=== PATIENT | female | born 1940 | race Hispanic/Latino ===

== ENCOUNTER 2018-12-14 14:39 | Inpatient (IN) | payer OTHER, MEDICARE ==
[~2018-12-14] VITALS: Ht 157.5 cm; Wt 83.0 kg
[2018-12-14 16:11] LABS: BASOPHILS % (AUTO) 0.6 % (0.0-5.0); EOSINOPHILS % (AUTO) 4.2 % (0.0-8.0); HEMATOCRIT 37.8 % (36-48); LYMPHOCYTES % (AUTO) 24.6 % (21.0-51.0); MEAN CORPUSCULAR HGB CONC 33.3 g/dL (32.0-36.0); MEAN CORPUSCULAR VOLUME 86.9 fL (79-99); MONOCYTES % (AUTO) 10.9 % (3.0-13.0); NEUTROPHILS % (AUTO) 59.7 % (40.0-77.0); PLATELET COUNT (AUTO) 160 K/uL (130-400); RED BLOOD CELL COUNT(AUTO) 4.35 MIL/uL (4.00-5.50); WHITE BLOOD COUNT (AUTO) 7.8 K/uL (4.8-10.8)
[2018-12-14 16:20] LABS: CREATININE 1.1 mg/dL (0.5-1.5)
[2018-12-14 16:23] LABS: INR 1.15 (0.85-1.15); PARTIAL THROMBOPLASTIN TIME 30.1 SEC (26.3-35.5)
[2018-12-14 16:28] LABS: APPEARANCE,URINE Clear (CLEAR); BILIRUBIN,URINE Negative (NEGATIVE); COLOR,URINE Yellow (YELLOW); GLUCOSE, URINE (UA) Negative (NEGATIVE); KETONES,URINE Negative (NEGATIVE); LEUKOCYTE ESTERASE ,URINE Negative (NEGATIVE); NITRATE,URINE Negative (NEGATIVE); OCCULT BLOOD,URINE Small (NEGATIVE); PROTEIN,URINE Negative (NEGATIVE); UROBILINOGEN,URINE 0.2 mg/dL (0.2-1.0)
[2018-12-14 16:32] LABS: ALBUMIN 3.2 g/dL (3.5-5.0); BILIRUBIN,TOTAL 0.3 mg/dL (0.2-1.0); MAGNESIUM 2.4 mg/dL (1.80-2.40); THYROID STIMULATING HORMONE 0.12 uIU/mL (0.36-3.74); TOTAL PROTEIN, SERUM 6.6 g/dL (6.0-8.3)
[2018-12-14 16:37] LABS: B-TYPE NATRIURETIC PEPTIDE 262 pg/mL (0-100)
[2018-12-14 16:42] LABS: BACTERIA,URINE Rare /HPF (None Seen); MUCUS,URINE None Seen LPF (None Seen); SQUAMOUS EPITHELIAL CELL,UR 0-2 /HPF (0-2)
[2018-12-14] MEDS ORDERED: ACETAMINOPHEN 325 MG TAB PO PRN (17:45)
[2018-12-14] MEDS ORDERED: ONDANSETRON HCL 4 MG/2 ML VIAL IV PRN (17:45)
[2018-12-14] MEDS ORDERED: HYDRALAZINE HCL 20 MG/ML VIAL IV PRN (17:45)
[2018-12-14] MEDS ORDERED: ASPIRIN 81 MG EC TAB PO SCH (18:00)
[2018-12-14] MEDS ORDERED: FUROSEMIDE 10 MG/ML 2ML VIAL ONE (18:41)
[2018-12-14] MEDS ORDERED: ASPIRIN 81MG TAB.CHEW ONE (18:41)
[2018-12-14] MEDS ORDERED: ACETAMINOPHEN 325 MG TAB ONE (22:19)
[2018-12-14] MEDS ORDERED: FAMOTIDINE/PF 20 MG/2 ML VIAL IV ONE (22:35)
[2018-12-15] MEDS: FUROSEMIDE 10 MG/ML 2ML VIAL IV SCH ×2 (06:00→17:56)
[2018-12-15] MEDS ORDERED: FUROSEMIDE 10 MG/ML 2ML VIAL ONE (06:13)
[2018-12-15 06:52] LABS: BASOPHILS % (AUTO) 1.7 % (0.0-5.0); EOSINOPHILS % (AUTO) 4.1 % (0.0-8.0); HEMATOCRIT 39.8 % (36-48); LYMPHOCYTES % (AUTO) 23.9 % (21.0-51.0); MEAN CORPUSCULAR HEMOGLOBIN 28.9 pg (27.0-33.0); MEAN CORPUSCULAR HGB CONC 33.2 g/dL (32.0-36.0); MONOCYTES % (AUTO) 9.4 % (3.0-13.0); NEUTROPHILS % (AUTO) 60.9 % (40.0-77.0); NUCLEATED RED BLOOD CELLS 0.1 % (0.0-0.19); PLATELET COUNT (AUTO) 113 K/uL (130-400); RED BLOOD CELL COUNT(AUTO) 4.58 MIL/uL (4.00-5.50); WHITE BLOOD COUNT (AUTO) 8.5 K/uL (4.8-10.8)
[2018-12-15 06:59] LABS: CREATININE 0.8 mg/dL (0.5-1.5)
[2018-12-15] MEDS ORDERED: LORA-192 PO ×2 (07:59→12:21)
[2018-12-15] MEDS ORDERED: LEVE-43 PO (07:59)
[2018-12-15] MEDS ORDERED: RIVA20TA PO (07:59)
[2018-12-15] MEDS ORDERED: OLOP2.5D5 OU (07:59)
[2018-12-15] MEDS ORDERED: MONT10TA21 PO (07:59)
[2018-12-15] MEDS ORDERED: CETI10TA57 PO (07:59)
[2018-12-15] MEDS ORDERED: FURO40TA5 PO (07:59)
[2018-12-15] MEDS ORDERED: LEVO100T4 PO (07:59)
[2018-12-15] MEDS ORDERED: ISOS20TA7 PO (07:59)
[2018-12-15] MEDS ORDERED: SERT100T PO (07:59)
[2018-12-15] MEDS ORDERED: POTA20PA32 PO (07:59)
[2018-12-15] MEDS ORDERED: GABA-533 PO (07:59)
[2018-12-15] MEDS ORDERED: SULF500T8 PO (07:59)
[2018-12-15] MEDS ORDERED: METH10TA2 PO (07:59)
[2018-12-15] MEDS ORDERED: METO25TA6 PO ×2 (07:59→18:12)
[2018-12-15] MEDS ORDERED: ESOM40CA PO (07:59)
[2018-12-15] MEDS ORDERED: SPIR25TA6 PO (07:59)
[2018-12-15] MEDS ORDERED: ROSU10TA22 PO (07:59)
[2018-12-15] MEDS ORDERED: ASPIRIN 81MG TAB.CHEW ONE (08:02)
[2018-12-15] MEDS ORDERED: ENOXAPARIN SODIUM 40 MG/0.4 ML SYRINGE SQ ONE (08:04)
[2018-12-15] MEDS ORDERED: FAMOTIDINE/PF 20 MG/2 ML VIAL IV ONE (08:05)
[2018-12-15] MEDS ORDERED: FAMOTIDINE/PF 20 MG/2 ML VIAL IV SCH (09:00)
[2018-12-15] MEDS ORDERED: ENOXAPARIN SODIUM 40 MG/0.4 ML SYRINGE SQ SCH (09:00)
[2018-12-15 10:13] VITALS: BP 126/53
[2018-12-15 12:04] VITALS: BP 157/68
[2018-12-15] MEDS ORDERED: LORAZEPAM 1 MG TABLET PO PRN (12:30)
[2018-12-15 16:01] VITALS: BP 129/47
--- NOTE | 2018-12-15 18:36 | NUR ---
Patient already received Flu Vaccine this season and therefore is not eligible to get vaccine in hospital.
[2018-12-15] MEDS ORDERED: RIVAROXABAN 20 MG TABLET PO SCH (21:00)
[2018-12-15] MEDS ORDERED: METHADONE HCL 10 MG TABLET PO SCH (21:00)
[2018-12-15] MEDS ORDERED: LEVETIRACETAM 500 MG TABLET PO SCH (21:00)
[2018-12-15] MEDS ORDERED: GABAPENTIN 100 MG CAPSULE PO SCH (21:00)
[2018-12-15] MEDS ORDERED: METOPROLOL TARTRATE 25 MG TAB PO SCH (21:00)
[2018-12-16] MEDS ORDERED: LEVOTHYROXINE 100 MCG TABLET PO SCH (06:30)
[2018-12-16] MEDS ORDERED: SULFASALAZINE 500 MG TAB.DR PO SCH (08:00)
[2018-12-16] MEDS ORDERED: SERTRALINE HCL 50 MG TABLET PO SCH (09:00)
[2018-12-16] MEDS ORDERED: MONTELUKAST SODIUM 10 MG TAB PO SCH (09:00)
[2018-12-16] MEDS ORDERED: SPIRONOLACTONE 25 MG TAB PO SCH (09:00)
[2018-12-16] MEDS ORDERED: POTASSIUM CHLORIDE 20 MEQ ERTAB PO SCH (09:00)
[2018-12-16] MEDS ORDERED: CETIRIZINE HCL 5 MG TABLET PO SCH (09:00)
[2018-12-16] MEDS ORDERED: ISOSORBIDE MONONITRATE 20 MG TABLET PO SCH (09:00)
[2018-12-16] MEDS ORDERED: PANTOPRAZOLE SODIUM 40 MG TABLET.DR PO SCH (09:00)
[2018-12-16] MEDS ORDERED: OLOPATADINE HCL OU SCH (09:00)
== END 2018-12-15 19:10 | disposition home or self-care (01) | DRG 292 ==
LOC: EDH 14:39 → EDHIP 17:43 → 2AH 12-15 10:09
PROVIDERS: ADMIT Hospitalist; ATTEND Hospitalist
DX: I11.0 Hypertensive heart disease with heart failure (principal); I48.20 Chronic atrial fibrillation, unspecified; I48.92 Unspecified atrial flutter; R00.1 Bradycardia, unspecified; E89.0 Postprocedural hypothyroidism; I25.10 Atherosclerotic heart disease of native coronary artery without angina pectoris; I34.0 Nonrheumatic mitral (valve) insufficiency; G47.33 Obstructive sleep apnea (adult) (pediatric); I95.9 Hypotension, unspecified; Z79.01 Long term (current) use of anticoagulants; Z88.1 Allergy status to other antibiotic agents; Z88.8 Allergy status to other drugs, medicaments and biological substances; I50.33 Acute on chronic diastolic (congestive) heart failure
CPT/HCPCS: 36415; 71045; 80048; 80053; 81001; 82550; 82948; 83735; 83880; 84436; 84443; 84481; 84484; 85025; 85610; 85730; 93005; 93306; 99291; G0378; J1650; J1940; J3490

== ENCOUNTER → 2019-01-24 | Outpatient (CLI) | payer OTHER, MEDICARE ==
[~2019-01-24] MED LIST: CETI10TA57 PO; ESOM40CA PO; FURO40TA5 PO; GABA-533 PO; ISOS20TA7 PO; LEVE-43 PO; LEVO100T4 PO; LORA-192 PO; METH10TA2 PO; METO25TA6 PO; MONT10TA21 PO; OLOP2.5D5 OU; POTA20PA32 PO; RIVA20TA PO; ROSU10TA22 PO; SERT100T PO; SPIR25TA6 PO; SULF500T8 PO
== END | disposition home or self-care (01) ==
LOC: SHCH 10:24
PROVIDERS: ATTEND Internal Medicine Cardiovascular Disease
DX: I87.2 Venous insufficiency (chronic) (peripheral) (principal)
CPT/HCPCS: 93970